=== PATIENT | female | born 1955 | race Caucasian/White ===

== ENCOUNTER → 2016-06-22 | Outpatient (CLI) | payer MEDICAID ==
[~2016-06-22] MED LIST: GADOBUTROL 10 ML VIAL IVP ONE
== END ==
LOC: FIMAGING 10:45
PROVIDERS: ATTEND Internal Medicine Hematology & Oncology
DX: Z12.39 Encounter for other screening for malignant neoplasm of breast (principal); Z15.01 Genetic susceptibility to malignant neoplasm of breast; D25.9 Leiomyoma of uterus, unspecified
CPT/HCPCS: 0159T; 76856; 77059; A9585; C8908

== ENCOUNTER → 2016-08-05 | Outpatient (CLI) | payer MEDICAID | LOC: FIMAGING 10:50 | PROVIDERS: ATTEND Family Medicine | DX: M54.10 Radiculopathy, site unspecified (principal); M41.9 Scoliosis, unspecified; M43.16 Spondylolisthesis, lumbar region ==

== ENCOUNTER → 2017-01-19 | Outpatient (CLI) | payer MEDICAID | LOC: CIMAGING 10:08 | PROVIDERS: ATTEND Internal Medicine Hematology & Oncology | DX: Z12.31 Encounter for screening mammogram for malignant neoplasm of breast (principal); Z15.01 Genetic susceptibility to malignant neoplasm of breast | CPT/HCPCS: G0202 ==

== ENCOUNTER → 2017-04-28 | Outpatient (CLI) | payer MEDICAID | LOC: FIMAGING 10:23 | PROVIDERS: ATTEND Family Medicine | DX: Z13.820 Encounter for screening for osteoporosis (principal); M81.0 Age-related osteoporosis without current pathological fracture ==

== ENCOUNTER → 2017-07-06 | Outpatient (CLI) | payer MEDICAID | LOC: CIMAGING 10:01 | PROVIDERS: ATTEND Internal Medicine Hematology & Oncology | DX: Z12.73 Encounter for screening for malignant neoplasm of ovary (principal); D25.0 Submucous leiomyoma of uterus; Z80.3 Family history of malignant neoplasm of breast; Z15.01 Genetic susceptibility to malignant neoplasm of breast | CPT/HCPCS: 76856-PO ==

== ENCOUNTER → 2017-07-13 | Outpatient (CLI) | payer MEDICAID | LOC: FIMAGING 09:28 | PROVIDERS: ATTEND Internal Medicine Hematology & Oncology | DX: Z15.01 Genetic susceptibility to malignant neoplasm of breast (principal); Z80.3 Family history of malignant neoplasm of breast | CPT/HCPCS: 0159T; 77059; A9585; C8908 ==

== ENCOUNTER → 2017-11-19 | Outpatient (CLI) | payer OTHER, MEDICAID | LOC: FIMAGING 09:26 | PROVIDERS: ATTEND Family Medicine | DX: M51.16 Intervertebral disc disorders with radiculopathy, lumbar region (principal); M51.26 Other intervertebral disc displacement, lumbar region; M48.061 Spinal stenosis, lumbar region without neurogenic claudication; M48.07 Spinal stenosis, lumbosacral region ==

== ENCOUNTER → 2017-12-04 | Outpatient (CLI) | payer OTHER, MEDICAID | LOC: FIMAGING 15:08 | PROVIDERS: ATTEND Family Medicine | DX: M43.16 Spondylolisthesis, lumbar region (principal); M41.86 Other forms of scoliosis, lumbar region; M47.896 Other spondylosis, lumbar region; M89.38 Hypertrophy of bone, other site ==

== ENCOUNTER → 2017-12-11 | Outpatient (CLI) | payer OTHER, MEDICAID | LOC: CIMAGING 10:17 | PROVIDERS: ATTEND Family Medicine | DX: M48.061 Spinal stenosis, lumbar region without neurogenic claudication (principal); M47.26 Other spondylosis with radiculopathy, lumbar region; D25.9 Leiomyoma of uterus, unspecified | CPT/HCPCS: 72131-PO ==

== ENCOUNTER → 2018-01-25 | Outpatient (CLI) | payer OTHER, MEDICAID | LOC: CIMAGING 10:16 | PROVIDERS: ATTEND Internal Medicine Hematology & Oncology | DX: Z12.31 Encounter for screening mammogram for malignant neoplasm of breast (principal); Z80.3 Family history of malignant neoplasm of breast ==

== ENCOUNTER → 2018-03-05 | Outpatient (CLI) | payer OTHER, MEDICAID | LOC: FIMAGING 12:00 | PROVIDERS: ATTEND Family Medicine | DX: Z01.818 Encounter for other preprocedural examination (principal); J44.9 Chronic obstructive pulmonary disease, unspecified; E78.5 Hyperlipidemia, unspecified; E03.9 Hypothyroidism, unspecified ==

== ENCOUNTER → 2018-03-16 | Outpatient (CLI) | payer OTHER, MEDICAID | LOC: BHFA 15:00 | PROVIDERS: ATTEND Internal Medicine Cardiovascular Disease | DX: Z01.818 Encounter for other preprocedural examination (principal); R07.9 Chest pain, unspecified ==

== ENCOUNTER → 2018-05-14 | Outpatient (CLI) | payer OTHER, MEDICAID | LOC: CIMAGING 11:31 | DX: M47.816 Spondylosis without myelopathy or radiculopathy, lumbar region (principal); M51.36 Other intervertebral disc degeneration, lumbar region; M51.37 Other intervertebral disc degeneration, lumbosacral region; M41.86 Other forms of scoliosis, lumbar region | CPT/HCPCS: 72114-PO ==

== ENCOUNTER → 2018-05-14 | Outpatient (CLI) | payer OTHER, MEDICAID | LOC: CIMAGING 11:18 | DX: Z01.818 Encounter for other preprocedural examination (principal); M48.061 Spinal stenosis, lumbar region without neurogenic claudication; M46.96 Unspecified inflammatory spondylopathy, lumbar region; M51.36 Other intervertebral disc degeneration, lumbar region | CPT/HCPCS: 72131-PO ==

== ENCOUNTER → 2018-06-01 | Outpatient (CLI) | payer OTHER, MEDICAID | LOC: FIMAGING 11:10 | PROVIDERS: ATTEND Family Medicine | DX: Z01.818 Encounter for other preprocedural examination (principal); M54.10 Radiculopathy, site unspecified; M48.061 Spinal stenosis, lumbar region without neurogenic claudication ==

== ENCOUNTER → 2018-07-13 | Outpatient (CLI) | payer OTHER, MEDICAID | LOC: FIMAGING 09:38 | PROVIDERS: ATTEND Internal Medicine Hematology & Oncology | DX: Z15.01 Genetic susceptibility to malignant neoplasm of breast (principal); Z13.71 Encounter for nonprocreative screening for genetic disease carrier status; Z80.0 Family history of malignant neoplasm of digestive organs; Z80.3 Family history of malignant neoplasm of breast; Z12.39 Encounter for other screening for malignant neoplasm of breast; D25.9 Leiomyoma of uterus, unspecified | CPT/HCPCS: 76856; A9585; C8908 ==